=== PATIENT | female | born 1985 | race Caucasian/White ===

== ENCOUNTER 2022-07-30 17:23 | Inpatient (IN) | payer OTHER, SELFPAY ==
[2022-07-30] VITALS (15 sets, daily range): BP systolic 105–123; BP diastolic 49–85; PULSE 61–83; RESP 16–17; TEMP 36.8–37; BMI 28.8
--- NOTE | 2022-07-30 18:25 | LDADM ---
This patient, Lise Chávez, was admitted to Labor/Delivery/Recovery 108 on 07/30/22 at 17:23. Plans for labor, pain management and were discussed with patient. Patient/family oriented to hospital policies and general routines including ID bracelet, bed and alarms, visiting hours, pain management, procedures, bathroom and other care routines, personal items, smoking policy, room service/diet and guest tray routines, security routines, and visiting hours. Patient/Family are encouraged to report perceived risks to care and to ask questions if they do not understand what they are told or what they should do. See OBIX for further documentation.
[2022-07-30] MEDS: DINOPROSTONE 10 MG VAG INSERT VAGINAL (18:50)
[2022-07-30 18:58] LABS: Basophils Percent Auto 0.4 % (0.2-1.2); Eosinophils Absolute Auto 0.1 K/mm3 (0-0.3); Eosinophils Percent Auto 0.7 % (0-4.4); Hematocrit 35.5 % (37.0-47.0); Hemoglobin 12.1 g/dL (12.0-15.0); Immature Granulocyte Absolute 0.09 K/mm3 (0.00-0.031); Immature Granulocyte Percent A 1.1 % (0-0.5); Lymphocytes Absolute Auto 1.54 K/mm3 (0.9-3.2); Lymphocytes Percent Auto 18.4 % (18.3-44.2); Mean Corpuscular HGB Conc 34.1 g/dl (32-36); Mean Corpuscular Hemoglobin 34.3 pg (26-34); Mean Corpuscular Volume 100.6 fl (80-100); Monocytes Absolute Auto 0.5 K/mm3 (0.1-0.6); Monocytes Percent Auto 6.1 % (2.6-8.5); Neutrophils Absolute Auto 6.2 K/mm3 (1.3-6.7); Neutrophils Percent Auto 73.3 % (45.5-73.1); Platelet Count Result 215 k/mm3 (150-375); Red Blood Count 3.53 M/mm3 (4.2-5.4); Red Cell Distribution Width 12.1 % (11.5-14.5); White Blood Count 8.4 K/mm3 (4.5-10.0)
[2022-07-31] VITALS (215 sets, daily range): BP systolic 95–142; BP diastolic 58–110; PULSE 25–183; RESP 15–18; TEMP 36.2–36.9; O2SAT 84–100
[2022-07-31] MEDS: fentaNYL CITRATE INJ (*CRX) 100 MCG/2 ML VIAL 50 MCG IV PUSH (00:19)
[2022-07-31] MEDS: LACTATED RINGERS 1,000 ML 125 ML IV CONT ×4 (00:33→12:33)
--- NOTE | 2022-07-31 01:04 | WPDANESEPP ---
Anes - Eval Pre Procedure Procedure: Labor epidural Date/Time: 07/31/22 01:04 Pre Op Diagnosis: IOL Patient Data Age: 37 Gender: F Height: 1.65 m Weight: 78.5 kg Last Vital Signs Temp 36.8 C 07/30/22 21:00 Pulse 62 07/31/22 00:45 Resp 17 07/30/22 18:50 BP 120/86 07/31/22 00:45 O2 Del Method Room Air 07/30/22 18:25 Allergies Allergy/AdvReac Type Severity Reaction Status Date / Time No Known Allergies Allergy Verified 07/24/22 09:41 Home Medications Medication Instructions Recorded Confirmed Type prenat.vits,manyd,ado-rqqw-svwco 1 tablet PO DAILY 03/09/21 07/01/22 History Laboratory Tests 07/30/22 07/30/22 07/30/22 18:45 18:45 18:45 WBC 8.4 K/mm3 K/mm3 (4.5-10.0) RBC 3.53 M/mm3 L M/mm3 (4.2-5.4) Hgb 12.1 g/dL g/dL (12.0-15.0) Hct 35.5 % L % (37.0-47.0) MCV 100.6 fl H fl (80-100) MCH 34.3 pg H pg (26-34) MCHC 34.1 g/dl g/dl (32-36) RDW 12.1 % % (11.5-14.5) Plt Count 215 k/mm3 k/mm3 (150-375) MPV 11.0 fl H fl (7.4-10.4) Immature Gran % (Auto) 1.1 % H % (0-0.5) Neut % (Auto) 73.3 % H % (45.5-73.1) Lymph % (Auto) 18.4 % % (18.3-44.2) [place] % (Auto) 6.1 % % (2.6-8.5) Eos % (Auto) 0.7 % % (0-4.4) Baso % (Auto) 0.4 % % (0.2-1.2) Lymph # (Auto) 1.54 K/mm3 K/mm3 (0.9-3.2) [place] # (Auto) 0.5 K/mm3 K/mm3 (0.1-0.6) Eos # (Auto) 0.1 K/mm3 K/mm3 (0-0.3) Baso # (Auto) 0.0 K/mm3 K/mm3 (0.0-0.1) Abs Immat Gran (auto) 0.09 K/mm3 H K/mm3 (0.00-0.031) Absolute Neuts (auto) 6.2 K/mm3 K/mm3 (1.3-6.7) Absolute Nucleated RBC 0.0 K/mm3 K/mm3 (0.0-0.012) Nucleated RBC % 0.0 % % (0.0-0.2) RPR Pending Blood Type A Positive Antibody Screen Negative Patient hx anesthesia problems: none Family hx anesthesia problems: none Results Review: All pre-operative results and documents have been reviewed as part of the pre-operative evaluation. [facility] Past Medical History Medical History (Updated 07/31/22 @ 01:06 by Yesika Maki CRNA) Depression Eczema Surgical History Surgical History [place] teeth removed x 1 Family History Family History Mother Family history of thyroid disease Father Family history of pulmonary embolism Rheumatoid arthritis Prostate carcinoma Social History Social History Smoking status: Never smoker Smoking end date: 06/04/09 Alcohol intake: current Substance use: never Lack of Transportation: No Lack of Food: Never True Current Housing: I Have Housing Concerned About Future Housing: No Difficulty Paying Gas/Electric Bills: No Difficulty Paying for Meds: No Currently Unemployed: No Education: Master's Degree or Higher Difficulty w/ Childcare or Family Care: No Spiritual care concerns: No Exam Day of Procedure 07/31/22 01:04
[2022-07-31] MEDS: TERBUTALINE SULFATE 1 MG/ML VIAL 0.25 MG SUB-Q (01:57)
[2022-07-31 12:19] LABS: Rapid Plasma Reagin Non-Reactive (NonReactive)
[2022-07-31] MEDS: OXYTOCIN 30 UNITS/NS 500 ML 30 UNITS/500 ML BAG 999 UNITS IV CONT (15:26)
[2022-07-31] MEDS: OXYTOCIN 30 UNITS/NS 500 ML 30 UNITS/500 ML BAG 125 UNITS IV CONT (15:59)
--- NOTE | 2022-07-31 16:26 | PM.IMHP ---
H&P: HPI History of Present Illness Date/Time: 07/31/22 16:26 Chief Complaint: Induction of labor. Narrative: Patient is a G1 at 40 weeks by 9 week ultrasound which was not consistent with her LMP of 10/11/21. PNC significant for AMA, normal NIPT. Labs reviewed. She has been informed of risk benefits of induction of labor vs spontaneous and has opted for induction of labor. Review of Systems Review of Systems: All systems reviewed & are unremarkable except as noted in HPI and below Constitutional: Constitutional: Reports no additional constitutional complaints and Denies headache(s) Eyes: Eyes: Denies spots in vision ENT: Reports system reviewed and no additional complaints, except as documented and Denies headache(s) Cardiovascular: Cardiovascular: Denies chest pain and Denies dyspnea Respiratory: Respiratory: Denies dyspnea Gastrointestinal: Gastrointestinal: Reports no additional gastrointestinal complaints Genitourinary: Genitourinary: Reports amenorrhea Musculoskeletal: Musculoskeletal: Reports no additional musculoskeletal complaints Integumentary/Breasts: Skin/Breast: Denies breast mass and Denies rash Neurologic: Denies headache(s) Psychiatric: Psychiatric: Reports no additional psychiatric complaints PMF Past Medical History Medical History Depression Eczema Surgical History Surgical History [place] teeth removed x 1 Family History Family History Mother Family history of thyroid disease Father Family history of pulmonary embolism Rheumatoid arthritis Prostate carcinoma Social History Social History Smoking status: Never smoker Smoking end date: 06/04/09 Alcohol intake: current Substance use: never Lack of Transportation: No Lack of Food: Never True Current Housing: I Have Housing Concerned About Future Housing: No Difficulty Paying Gas/Electric Bills: No Difficulty Paying for Meds: No Currently Unemployed: No Education: Master's Degree or Higher Difficulty w/ Childcare or Family Care: No Spiritual care concerns: No Meds Home Medications and Allergies Home Medications Medication Instructions Recorded Confirmed Type prenat.vits,mandy,jjt-qtdy-yzkoa 1 tablet PO DAILY 03/09/21 07/01/22 History Allergies Allergy/AdvReac Type Severity Reaction Status Date / Time No Known Allergies Allergy Verified 07/24/22 09:41 Vital Signs Vital Signs - 24 hr 07/30/22 17:44 07/30/22 17:45 07/30/22 18:00 Temperature Pulse Rate 83 76 79 Respiratory Rate Blood Pressure 116/74 119/81 105/68 Pulse Oximetry Oxygen Delivery 07/30/22 18:15 07/30/22 19:00 07/30/22 19:15 Temperature 98.3 F Pulse Rate 69 68 70 Respiratory Rate 16 Blood Pressure 118/75 123/72 106/58 L Pulse Oximetry Oxygen Delivery 07/30/22 19:30 07/30/22 19:46 07/30/22 20:00 Temperature Pulse Rate 61 61 66 Respiratory Rate Blood Pressure 112/57 L 106/49 L 109/65 Pulse Oximetry Oxygen Delivery 07/30/22 20:15 07/30/22 20:30 07/30/22 20:45 Temperature Pulse Rate 68 67 74 Respiratory Rate Blood Pressure 117/85 116/73 117/71 Pulse Oximetry Oxygen Delivery 07/30/22 21:00 07/30/22 18:50 07/31/22 00:23 Temperature 98.3 F 98.6 F Pulse Rate 78 60 Respiratory Rate 17 Blood Pressure 114/66 132/77 Pulse Oximetry Oxygen Delivery 07/31/22 00:30 07/31/22 00:45 07/31/22 01:09 Temperature Pulse Rate 63 62 Respiratory Rate Blood Pressure 120/83 120/86 Pulse Oximetry 99 Oxygen Delivery 07/31/22 01:14 07/31/22 01:15 07/31/22 01:19 Temperature Pulse Rate 64 Respiratory Rate Blood Pressure 138/85 Pulse Oximetry 100 99 Oxygen Delivery 07/31/22 01:24 02
--- NOTE | 2022-07-31 16:26 | PM.OBPNLAB ---
Pain Control Date/time seen: 07/31/22 Comments: AROM 0750 ,clear Cat 1 , expectant management, cx- /-2
--- NOTE | 2022-07-31 16:32 | P.PNOB_ITS ---
OB - PN: Subj Subjective Date/time seen: 07/31/22 Interval history: 1300 , 115, Cat 2 cont exp managment, recent cx exam 8. OB - PN: Obj Data Labs 07/30/22 18:45 Labs: Laboratory Results - last 24 hr 07/30/22 07/30/22 07/30/22 18:45 18:45 18:45 WBC 8.4 RBC 3.53 L Hgb 12.1 Hct 35.5 L MCV 100.6 H MCH 34.3 H MCHC 34.1 RDW 12.1 Plt Count 215 MPV 11.0 H Immature Gran % (Auto) 1.1 H Neut % (Auto) 73.3 H Lymph % (Auto) 18.4 [place] % (Auto) 6.1 Eos % (Auto) 0.7 Baso % (Auto) 0.4 Lymph # (Auto) 1.54 [place] # (Auto) 0.5 Eos # (Auto) 0.1 Baso # (Auto) 0.0 Abs Immat Gran (auto) 0.09 H Absolute Neuts (auto) 6.2 Absolute Nucleated RBC 0.0 Nucleated RBC % 0.0 RPR Non-reactive Blood Type A Positive Antibody Screen Negative OB - PN A/P Time Spent With Patient Time: Total time spent is greater than 50% in coordination of care (as documented) at patient's floor/unit and/or counseling patient:
--- NOTE | 2022-07-31 16:34 | P.PCNOB_ITS ---
OB - Delivery Note Procedure Delivery date: 07/31/22 Procedure: Spontaneous vaginal delivery Induction method: Per Misoprostol Protocol Delivery augmentation: Rupture of Membranes Delivery monitor: External FHT Route of delivery: Laceration Description: Perineal - 2nd Degree Delivery repair: vicryl (3.0 ) Specimen: Yes (placenta and cord) Quantitative Blood Loss (ml): 200 Anesthesia type: Epidural Disposition: Floor Complications: None Narrative: She was admitted for [facility]. Cervidil was placed. She went into labor with the Cervidil. Cervidil was removed. She continued to progress in labor. She had AROM, clear fluid the morning of 07/31. She continued to progress in active labor. She delivered a male . She sustained a second degree perineal laceration. Repaired with interrupted sutures of 3.0 vicryl. [place] Baby Date of : 07/31/22 Time of : 15:24 Weeks of gestation at delivery: 40 gender: Male Weight (pounds): 8 Weight (ounces): 14 presentation: vertex position: Right Occiput Anterior Placenta delivery description: Spontaneous Cord Vessel Description: 3 Vessels, Clamped/Cut and Delayed Cord Clamping score one minute: 8 score five minutes: 9 AMG Delivery Billing Delivery Delivery: Delivery Charge
[2022-07-31] MEDS: IBUPROFEN 600 MG TABLET PO (17:26)
[2022-07-31] MEDS: WITCH HAZEL 40 PADS 1 PAD TOPICAL (17:27)
[2022-07-31] MEDS: BENZOCAINE 20% AER SPR (*SP) 56 GM CAN 1 SPRAY TOPICAL (17:27)
--- NOTE | 2022-07-31 18:50 | OBPPTRN ---
Patient transferred to post room #282 via W/C. Support person present. Oriented to unit, room, information board, rooming in, admission packet and security measures. Patient verbalizes understanding.
[2022-07-31] MEDS: ACETAMINOPHEN 325 MG TABLET 650 MG PO (20:18)
[2022-08-01 04:05] VITALS: BP 114/74; PULSE 61; RESP 18; TEMP 36.6
[2022-08-01] MEDS: IBUPROFEN 600 MG TABLET PO ×3 (04:10→19:15)
[2022-08-01 04:33] LABS: Hematocrit 32.4 % (37.0-47.0); Hemoglobin 10.9 g/dL (12.0-15.0)
[2022-08-01 07:40] VITALS: BP 114/68; PULSE 65; RESP 16; TEMP 37.7; O2SAT 98
--- NOTE | 2022-08-01 08:13 | WPDANLDPN2 ---
Anes-Prog Note L&D Date/Time: 08/01/22 08:13 Comfortable throughout: labor and delivery Neuraxial method: epidural Epidural/Spinal procedure site: clean & non-tender Neuro status: Neuro function grossly intact. Cardiovascular status: normal Respiratory status: normal Airway patency: baseline Mental status: baseline Post-Op hydration status: normal Vital Signs: Last Vital Signs Temp 98 F 08/01/22 04:05 Pulse 61 08/01/22 04:05 Resp 18 08/01/22 04:05 BP 114/74 08/01/22 04:05 Pulse Ox 100 07/31/22 15:25 O2 Del Method Room Air 07/31/22 19:15 Pain score (VAS): 0/10 I/O: Intake & Output 07/31/22 08/01/22 08/01/22 23:59 07:59 15:59 Output Total 65 Balance -65 Post-procedural complaints: none Patient feedback: Patient satisfied with anesthetic care.
[2022-08-01] MEDS: ACETAMINOPHEN 325 MG TABLET 650 MG PO (09:19)
[2022-08-01] MEDS: DOCUSATE SODIUM 100 MG CAPSULE PO (09:19)
[2022-08-01] MEDS: MULTIVIT/MIN/PREN/FOL AC/IRON TABLET 1 TAB PO (09:19)
[2022-08-01 12:12] VITALS: BP 114/71; PULSE 57; RESP 16; TEMP 37.1; O2SAT 98
--- NOTE | 2022-08-01 14:35 | PC.NURSE ---
[id number] Introductions were made, then consulted with patient to assess needs related to . Mother led the conversation with her?plans to feed?her infant and the?experience so far. Resources provided for inpatient and outpatient services with the feeding sheet, mom/baby guide and name written on the white board. Mother voiced understanding of information and requested assistance. Mother works well with her with encouragement and education. Encouraged understanding of the benefits of skin to skin (demonstrating unwrapping infant and placing upright on her chest), stimulating with massage touch, changing positions to encourage wakefulness, how to watch for early feeding cues, hand expression, responsive feeding, feeding on demand (aiming for 8-12 times in 24 hours, about every 2-3 hours), milk production, building/maintaining a milk supply, duration of feeding, signs of adequate intake/output and how to record on the feeding sheet. Reviewed positioning and ear, shoulder, hip alignment, supporting the breast to facilitate a deep latch, asymmetrical latch (off-center), leading with the chin with a big, open, wide gape and body close to mother. Infant is sleepy and reluctant. was recently circumcised at less than 24 hours old. Reminding mother of comfort measures of healing with a warm and wet washcloth to rinse breast, then leave open to air-dry as needed. Reviewed good handwashing when or touching the breast/nipples to prevent infection. Mother will eat her breakfast, then call for assistance with .Resources used to facilitate learning were used with the visual handouts, tool, mom and baby guide. Mother voiced understanding of skin to skin, stimulating with massage touch, responsive feedings, hand expressed colostrum, talking to infant to encourage if it has been 2 -2.5 hours since the start of the last , to call if does not latch, or if there is discomfort with . Parents voiced understanding of information, demonstrated learning and will call if there is a request for assistance. Reported to the primary RN. [phone] Father of requested a consult related to not latching. Reviewed education above as needed. Used hand expression and spoon fed several drops of colostrum to the to encourage wakefulness to breastfeed. Mother was placed in a laid-back cross cradle position and latched optimally to the left breast. Education given to the parents of how to visualize suck/swallow ratios and listen for drinking at the breast. Infant was able to maintain latch without pain to mother. Nipple care reviewed with optimal latch, good positioning and using clean hands when feeding her and touching her breast. Resources used to facilitate learning were used from the visual handout, tool, mom and baby guide. Mother voiced understanding of the education shared, to call for assistance if the does not latch or if there is discomfort with . Reported to the primary RN.
--- NOTE | 2022-08-01 17:39 | PM.OBPNVD ---
OB - PN: Subj Subjective Date/time seen: 08/01/22 17:39 Interval history: 1300 , 115, Cat 2 cont exp managment, recent cx exam 8. Patient comments: pain well controlled, tolerating diet and other (Decreasing lochia.) [place] baby status: doing well and nursing well [place] feeding status: exclusively breast feeding OB - PN: Obj Data Labs 08/01/22 04:10 Labs: Laboratory Results - last 24 hr 08/01/22 04:10 Hgb 10.9 L Hct 32.4 L OB - PN A/P Plan day: 1 Plan: routine care Comments: Patient doing well. Time Spent With Patient Time: Total time spent is greater than 50% in coordination of care (as documented) at patient's floor/unit and/or counseling patient: Exam Psych: Affect: normal affect Other: Abd: fundus firm below umbilicus, nontender Perineum: healing Ext: nontender
[2022-08-01 19:15] VITALS: BP 120/84; PULSE 61; RESP 18; TEMP 36.5
[2022-08-02] MEDS: IBUPROFEN 600 MG TABLET PO ×2 (01:30→08:54)
[2022-08-02 07:35] VITALS: BP 129/82; PULSE 63; RESP 16; TEMP 36.9; O2SAT 96
[2022-08-02] MEDS: MULTIVIT/MIN/PREN/FOL AC/IRON TABLET 1 TAB PO (08:54)
[2022-08-02] MEDS: LANOLIN (LANSINOH) 7.5 GM CREAM 1 APPLIC TOPICAL (08:56)
--- NOTE | 2022-08-02 10:58 | PM.OBPNVD ---
OB - PN: Subj Subjective Date/time seen: 08/02/22 10:58 Interval history: 1300 , 115, Cat 2 cont exp managment, recent cx exam 8. Patient comments: pain well controlled, tolerating diet and other (Decreasing lochia.) [place] baby status: doing well and nursing well OB - PN: Obj Data Labs 08/01/22 04:10 OB - PN A/P Plan day: 2 Plan: discharge home and other Comments: Patient doing well. Follow up in 1 week. Discharge instructions provided. Time Spent With Patient Time: Total time spent is greater than 50% in coordination of care (as documented) at patient's floor/unit and/or counseling patient: Time with patient: less than 15 minutes Exam Psych: Affect: normal affect Other: Abd: fundus firm below umbilicus, nontender Perineum: healing Ext: nontender
--- NOTE | 2022-08-02 16:21 | PC.NURSE ---
[id number] Consult requested by parents to have questions answered. Mother led the conversation with her experience and plan to feed her so far and her ability to independently latch infant optimally without discomfort. Reminded parents to use good handwashing technique to prevent infection. Mother is feeding appropriately for growth of and understands stimulating to eat if needed. Infant has had appropriate feedings in the last 24 hours meets the outcomes for weight, output and jaundice at this time. Mother states she is confident to continue effectively breastfeed her infant at home, when to call for assistance and denies any additional assistance or education at this time after questions were answered and discussed. Reinforced understanding of milk production, transition of milk, signs of adequate intake, transition of stool, prevention/relief of engorgement, responsive watching for feeding cues, the different methods of stimulating infant to breastfeed 2-3 hours after the start of the last feeding, community resources, medication information reviewed per [employer] and when to call a provider using the resource of the mom and baby guide/[facility] website. Mother voiced understanding of the education shared.
[2022-08-03 11:46] VITALS: BP 118/76; PULSE 70; RESP 20; TEMP 37.1; O2SAT 98
--- NOTE | 2022-08-21 10:47 | PM.OBDSVD ---
DS: Admitting Diagnosis Discharge Date 08/02/22 Admitting Diagnosis Medical induction of labor DS: Discharge Diagnosis Discharge Diagnosis (1) Delivery normal: Code(s): O80 - Encounter for full-term uncomplicated delivery Status: Acute OB - DS: Summary Hospital Course Hospital Course: She was admitted induction of labor. She had an uncomplicated vaginal delivery. She did well . She had adequate pain control, she ambulating without problems, baby was nursing well. She was discharged to home on day 2. Discharge precautions discussed. OB Procedures : Ultrasound OB Procedures Intrapartum: Spontaneous Vag Delivery OB Procedures: : None Peripartum Data Infant Delivery Method: Natural Vaginal Laceration Description: Perineal - 2nd Degree complications: none Status at Discharge Functional status at discharge: independent ambulation Time Spent with Patient Time attestation: Total time spent providing and/or coordinating discharge services: Exam Const: General: cooperative Orientation/consciousness: oriented to person, oriented to place and oriented to time HENMT: Face/Nose/Sinus: Normal external nose present Eyes: General: appearance normal, both eyes and all related structures Resp: Effort & Inspection: normal respiratory effort GI: Inspection: normal to inspection Skin: General skin exam: normal color Neuro: General: oriented to person, oriented to place and oriented to time Extrem: General: normal to inspection and no calf tenderness Psych: Appearance: grossly normal Mental Status: mental status grossly normal DS: Data Data Completed and Pending Completed studies during hospitalization: Pending at discharge 07/31/22 16:43 Surgical [PTH] Routine Discharge Plan Discharge Attending physician on discharge: Marcello Orourke Consulting providers: Yesika Maki ; Julian Gamble Discharging Clinician: Marcello Orourke Anticipated Discharge Date/Time: 08/02/22 10:52 Patient Disposition: Home, Self-Care Activity: may shower, no straining and pelvic rest Diet: regular Discharge Instructions: Education: Mom and Baby Guide Given to: Mother Follow-Up: Call your delivering provider's office for an appointment to be seen in: 1 Week Mom and baby should come to the [facility] for the follow-up appointment. Appointment Date/Time: August 03, 2022 at 11:00 am What to expect at your follow-up visit: Blood Pressure Check Physical Assessment Call [phone] if you are unable to keep your appointment time. BREAST CARE: * Wear a snug supportive bra. * For engorgement discomfort: Breast Feeding: * Apply warm moist washcloths * Express milk as needed to relieve engorgement * Wear loose clothing Bottle Feeding: * May apply ice packs * For sore nipples: * Identify correct latch-on * Apply warm moist washcloths before and after nursing * Air dry nipples after nursing * May apply Lansinoh cream to nipples EPISIOTOMY/PERINEAL CARE: * Until bleeding stops, use your tiny bottle after urinating * Change your pad frequently throughout the day * You may take sitz baths several times a day (fill your bathtub with warm water and soak for 20 minutes.) Do NOT bathe in the water * No tub baths until seen by your physician - You may shower ACTIVITY: * Rest as much as possible. * Do not exercise or lift anything heavier than your baby (such as laundry or other children.) * Avoid stairs or driving as much as possible. * Do not put anything into the vagina. No douching, tampons, or sexual activity until seen by physician. NOTIFY PHYSICIAN IF YOU HAVE ANY QUESTIONS OR IF ANY OF THE FOLLOWING SYMPTOMS OCCUR: * If your episiotomy or incision becomes red, swollen, or more painful than what you have experienced in the hospital. * If your vaginal bleedi
== END 2022-08-02 11:30 | disposition home or self-care (01) | DRG 807 ==
LOC: ANHLDR 17:26 → ANHOB2 07-31 18:56
PROVIDERS: Admitting Provider Obstetrics & Gynecology; Visit Provider Obstetrics & Gynecology
DX: O76 Abnormality in fetal heart rate and rhythm complicating labor and delivery (principal); Z37.0 Single live birth; O70.1 Second degree perineal laceration during delivery; O43.893 Other placental disorders, third trimester; Z3A.40 40 weeks gestation of pregnancy
CPT/HCPCS: 36415; 85014; 85018; 85025; 86592; 86850; 86900; 86901; 88307; A9270; J2590; J2795; J3010; J3105; J7120

== ENCOUNTER 2024-12-24 14:57 | Outpatient (CLI) | payer OTHER, SELFPAY ==
--- NOTE | ~2024-12-24 | MR_ITS ---
EXAMINATION: MR brain/brain stem wo con DATE: 12/24/2024 16:15 INDICATION: Multi sensory sensory dizziness TECHNIQUE: Magnetic resonance imaging (MRI) of the brain and brainstem was performed without intraven ous contrast. Sequences included sagittal and axial T1-weighted SE, axial diffusion-weighted FS SE, a xial T2*-weighted GRE, axial T2-weighted FLAIR, and axial T2-weighted FSE. Postcontrast axial and cor onal T1-weighted SE was obtained. Apparent diffusion coefficient (ADC) maps were created. COMPARISON: None. FINDINGS: There are no areas of restricted diffusion to suggest acute infarction. No intracranial hemorrhage or abnormal intracranial mass lesion. There are scattered areas of nonspecific increased T2-weighted si gnal intensity in the cerebral white matter, predominantly involving the deep and periventricular whi te matter. There are no intraparenchymal signal abnormalities seen on the other pulse sequences. The ventricles are symmetric and normal in size. There are no abnormal extra-axial fluid collections. Arnaldo w voids are seen in the cerebral arteries on the T2-weighted sequences consistent with their expected patency. Visualized orbits and soft tissues are unremarkable. Mild mucoperiosteal thickening the kathy ateral ethmoid and maxillary sinuses. IMPRESSION: 1. Normal brain. No acute intracranial process. Reviewed, dictated and finalized at location A.
== END 2024-12-24 14:58 | disposition home or self-care (01) ==
LOC: MICIMG 14:58
PROVIDERS: PCP Family Medicine; Visit Provider Family Medicine
DX: R42 Dizziness and giddiness (principal)
CPT/HCPCS: 70551